=== PATIENT | female | born 1970 | race Caucasian/White ===

== ENCOUNTER 2016-10-15 16:42 | Emergency (ER) | payer SELFPAY ==
[~2016-10-15] VITALS: Ht 144.8 cm; Wt 59.1 kg
[2016-10-15 16:52] VITALS: BP 162/89; PULSE 79; RESP 18
--- NOTE | 2016-10-15 17:53 | ED.REPORT ---
HPI-General Illness Date of Service Oct 15, 2016 ED Provider: Karlos Biswas PA-C Kelle is a 46-year-old female presents with chief complaint of abdominal pain. Patient states that she wrote for presentation she experienced stabbing epigastric pain radiating to her chest felt nauseated and had difficulty breathing, felt shaky and lightheaded. Patient states she has a history of anxiety and this feels different than her usual anxiety attacks. She reports that the pain is largely subsided now and is only "tingling pain". Denies fever , chest pain, palpitations, vomiting, dysphagia, diarrhea, melena, hematochezia or hematemesis. She reports a remote history of ulcers, anxiety, depression, hypertension, asthma. Nursing Notes Stated Complaint: CHEST PAIN Chief Complaint: General Complaint Nursing Notes Reviewed: Yes Allergies: Coded Allergies: codeine (Verified Allergy, Severe, 10/15/16) meperidine (Verified Allergy, Severe, 10/15/16) morphine (Verified Allergy, Severe, 10/15/16) Scheduled Omeprazole (Omeprazole) 20 Mg Capsule.dr 20 MG PO DAILY General Time Seen by MD: 17:29 Chief Complaint Abdominal pain Past Medical History Past Medical History Reports: Asthma, Hypertension, Peptic ulcer disease, Denies: Diabetes mellitus, GERD, Hyperlipidemia Denies: IV Drug use Review of Systems Negative unless stated otherwise in history of present illness Physical Exam General: Well developed, well nourished, no acute distress. Head: Atraumatic, normocephalic. Eyes: No scleral icterus or injection. No discharge. Vision grossly intact. ENT: Voice clear, hearing grossly intact. Respiratory: Regular rate and rhythm. Breath sounds present, clear to auscultation and equal bilaterally. Cardiovascular: Regular rate and rhythm, without murmur, gallop or rub. 1+ pitting edema bilaterally. Gastrointestinal: Abdomen flat and non-tender without guarding or rebound. Negative Hall sign. Bowel sounds hyperactive. Skin: Warm and dry. Neurological: Grossly nonfocal. Psychological: alert and oriented. Speech somewhat tangential. Vital Signs Vital Signs Date Time Temp Pulse Resp B/P Pulse Ox O2 Delivery O2 Flow Rate FiO2 10/15/16 16:52 36.6 79 18 162/89 Initial VS: Reviewed Interpretation & Diagnostics Lab Results Interpretation Result Diagram: 10/15/16 1803 10/15/16 1803 Test 10/15/16 18:03 White Blood Count 9.7th/mm3 (3.8-10.1) Red Blood Count 4.79mil/mm3 (3.90-5.20) Hemoglobin 10.6g/dL (12.0-15.6) Hematocrit 34.1% (35.0-46.0) Mean Corpuscular Volume 71.2fL (81-100) Mean Corpuscular Hemoglobin 22.1pg (27.0-35.0) Mean Corpuscular Hemoglobin Concent 31.1% (32.0-37.0) Red Cell Distribution Width 20.0% (12.3-15.4) Platelet Count 417bil/L (150-400) Neutrophils (%) (Auto) 77.0% (40-74) Lymphocytes (%) (Auto) 13.7% (14-46) Monocytes (%) (Auto) 8.4% (4-12) Eosinophils (%) (Auto) 0.6% (0-5) Basophils (%) (Auto) 0.2% (0-3) Sodium Level 141mEq/L (134-144) Potassium Level 4.4mEq/L (3.5-5.2) Chloride Level 105mEq/L (97-108) Carbon Dioxide Level 25mmol/L (18-29) Blood Urea Nitrogen 16mg/dL (6-24) Creatinine 0.59mg/dL (0.57-1.00) Estimat Glomerular Filtration Rate 157mL/min (>59) Glucose Level 98mg/dL (60-99) Calcium Level 8.6mg/dL (8.5-10.1) Total Bilirubin 0.2mg/dL (0.0-1.2) Aspartate Amino Transf (AST/SGOT) 17U/L (0-50) Alanine Aminotransferase (ALT/SGPT) 14U/L (0-32) Alkaline Phosphatase 56U/L (25-150) Troponin T < 0.010ug/L (0.0-0.011) Total Protein 6.5g/dL (6.4-8.4) Albumin 3.8g/dL (3.4-5.0) Lipase 75U/L (13-60) Hold Matthews Top Tube Received (Received) ECG Interpretation Normal ECG Interpretation: Normal ECG w/ rate of... (63), Normal sinus rhythm, No acute ischemic changes, Normal QRS, Normal axis, Normal intervals, Adequate tracing US Focused Biliary Dr Heller performed a biliary ultrasound Exam Performed by: ED physician Exam Type: Diagnostic, Educational Exam Interpreted by: ED physician Indication: Abdominal pain Views: Gallbladder long axis, Gallbladder short axis, Common bile duct Finding: Stones/Wall Thicken: Gallstones absent Finding: Fluid/Hall's/B Duct: Sono Hall's sign absent, Common bile duct normal Interpretation: No sig GB pathology Re-Eval/Medical Decision Med Decision/Clinical Course Brief this is a 46-year-old female patient presents with chief complaint of stabbing abdominal pain that radiates substernally. Symptoms began shortly before arrival at the emergency department and are largely resolved at this time. Considered cardiac etiology, hepatitis, gastritis, ulcer, perforation, gallbladder disease. Physical examination is benign, with a nontender abdomen. EKG and 2 hour troponin are normal. CMP is normal lipase is very slightly elevated. Bedside ultrasound performed by Dr. Heller revealed no gallbladder disease. Mild anemia and thrombocytosis are noted on CBC and not thought to be clinically significant chief complaint in light of normal BUN/creatinine level and no complaint of melena or hematochezia. We believe we have ruled out immediately dangerous causes of pain she felt today. Patient was given 1 dose of pantoprazole prior to departure and a prescription for omeprazole to be taken once a day for the next 2 weeks. Patient [facility] She met with social insurance adviser and discussed strategies for returning to [place]. Provided the local follow-up referral and return precautions. Discharge & Departure Primary Impression: Acute epigastric pain Disposition: Home Discharge Condition All VS Reviewed: Yes Condition: Stable Patient Instructions: Acute Abdominal Pain (ED) Additional Instructions: Evaluation for abdominal pain in the ED. We have performed a number of tests and believe we have ruled out any immediately dangerous causes for the pain you felt today. Fortunately it appears the symptoms have largely stopped. You have been given a dose of an anti-acid medication before leaving. I will give you a prescription for more of the same to be taken once a day for the next 2 weeks. I will also give you a referral for local primary care follow-up. Please contact them tomorrow to arrange follow-up in the next week or so. Return the emergency Department for any new or worsening symptoms including chest pain, shortness of breath, repeated vomiting, bloody/tarry stools. Referrals: [facility] Provider for APC: Fred Heller Seth PA-C Oct 15, 2016 17:52 Fred Heller DO Oct 18, 2016 03:48
[2016-10-15 18:10] LABS: BASOPHILS % (AUTO) 0.2 % (0-3); EOSINOPHILS % (AUTO) 0.6 % (0-5); MONOCYTES % (AUTO) 8.4 % (4-12); Mean Corpuscular Hemoglobin 22.1 pg (27.0-35.0); Mean Corpuscular Volume 71.2 fL (81-100); Platelet Count 417 bil/L (150-400)
[2016-10-15 19:24] LABS: TROPONIN T < 0.010 ug/L (0.0-0.011)
[2016-10-15 19:29] LABS: Lipase 75 U/L (13-60)
[2016-10-15] MEDS ORDERED: Pantoprazole 40 mg ER24 Tablet PO ONE (20:10)
[2016-10-15] MEDS ORDERED: OMEP20CA11 PO (20:35)
== END 2016-10-15 20:45 | disposition home or self-care (01) ==
LOC: EDBD 16:42 → SED 16:42
DX: R10.13 Epigastric pain (principal); J45.909 Unspecified asthma, uncomplicated; I10 Essential (primary) hypertension; Z88.5 Allergy status to narcotic agent